=== PATIENT | female | born 1970 | race Caucasian/White ===

== ENCOUNTER → 2023-12-21 07:09 | Outpatient (REF) | payer OTHER, SELFPAY | LOC: EMG 07:09 | PROVIDERS: ATTENDING PHYSICIAN Orthopaedic Surgery Hand Surgery; FAMILY PHYSICIAN Family Medicine | DX: M79.641 Pain in right hand (principal); R20.0 Anesthesia of skin | CPT/HCPCS: 95886; 95911 ==